=== PATIENT | male | born 1950 ===

== ENCOUNTER 2025-01-18 13:33 | Outpatient (CLI) | payer OTHER, SELFPAY | END 2025-01-18 13:34 | disposition home or self-care (01) | LOC: FRMREF 13:33 | PROVIDERS: PCP Family Medicine; Visit Provider Family Medicine | DX: Z00.00 Encounter for general adult medical examination without abnormal findings (principal); Z13.0 Encounter for screening for diseases of the blood and blood-forming organs and certain disorders involving the immune mechanism; Z13.1 Encounter for screening for diabetes mellitus | CPT/HCPCS: 80053; 83540; 83550 ==